=== PATIENT | female | born 1950 | race African-American/Black ===

== ENCOUNTER 2020-11-13 04:55 | Day surgery (SDC) | payer BC ==
[2020-11-11 11:51] LABS: BASOPHILS 0.7 % (0-2); EOSINOPHILS 2.5 % (0-7); HEMATOCRIT 43.5 % (36.0-48.0); HEMOGLOBIN 13.5 g/dL (12-16); MCH 24.3 pg (26.0-34.0); MCHC 31.1 g/dL (31.0-37.0); MCV 78.2 fL (80.0-100.0); MEAN PLATELET VOLUME 7.5 fL (7.4-10.4); MONOCYTES 7.6 % (2-11); NEUTROPHILS 62.2 % (40-80); PLATELET COUNT 275 10x3/uL (130-400); RBC 5.56 10x6/uL (4.00-5.40); RDW 14.4 % (11.5-14.5); WBC 7.5 10x3/uL (4.8-10.8)
[2020-11-11 12:04] LABS: ANION GAP 12.6 mmol/L (8-16); CALCIUM 9.9 mg/dL (8.5-10.1); CARBON DIOXIDE 27.1 mmol/L (21.0-32.0); CREATININE - SERUM 0.9 mg/dL (0.6-1.3); POTASSIUM - SERUM 3.7 mmol/L (3.5-5.1)
[~2020-11-13] VITALS: Ht 152.4 cm; Wt 62.6 kg
[~2020-11-13 04:55] MED LIST: ALTACE10 MG PO; ASPIRIN81 MG PO; COREG12.5 MG PO; GLUCOPHAGE1000 MG PO; HYDROCODON-ACE1 EAC7 PO; LEXAPRO10 MG PO; NORVASC10 MG PO; PROAIR HFA8.5 G1 INH; SINGULAIR10 MG PO; SYMBICORT 16010.2 GM INH; VICTOZA0.6 MG/0.1 SQ; ZOCOR40 MG PO
[2020-11-13 06:16] VITALS: BP 138/81; Ht 152.4 cm; Wt 62.6 kg
[2020-11-13] MEDS ORDERED: LEVEMIR FL100 UNIT/1 SC (06:22)
--- NOTE | 2020-11-13 08:15 | NUR ---
PADMA VILLAGRAN REVIEWED DISCHARGE INSTRUCTIONS WITH PT/SON. COPY OF DC INSTRUCTIONS PROVIDED ALONG WITH ORIGINAL RX FOR NORCO. BOTH VOICED UNDERSTANDING.
--- NOTE | 2020-11-13 08:22 | NUR ---
DISCHARGE INSTRUCTIONS GIVEN. PT VERBALIZED AN UNDERSTANDING. RX'D WITH NORCO FOR PAIN 12/22
--- NOTE | 2020-11-13 08:55 | NUR ---
DISCHARGED VIA W/C, ACCOMPANIED BY PADMA VILLAGRAN, TO WAITING AREA. SON ALSO WITH PT, AWAITING [facility].ALL BELONGINGS WITH PT/SON.
--- NOTE | 2020-11-13 14:17 | OP ---
PATIENT NAME: MARCEL BERRIOS MEDICAL RECORD: [id number] :50 LOCATION:[facility] ADMISSION DATE: SURGEON: HANS SNIDER DO DATE OF OPERATION: 11/13/2020 PROCEDURE: Left dorsal wrist ganglion excision. PREOPERATIVE DIAGNOSIS: Dorsal ganglion, left wrist. POSTOPERATIVE DIAGNOSIS: Dorsal ganglion, left wrist. INDICATIONS: The patient is a 70-year-old female who has had left wrist pain for quite some time. The ganglion has been going up and down and bothered her for quite some time and is inhibiting her activities of daily living and her function. She wanted something done surgically. She is aware of the risk of this including recurrence, commonly infection, bleeding, damage to nerves or vessels, need for further surgery, continued pain and blood clots and even and she signed consent. SURGEON: Hans Snider D.O. DESCRIPTION OF PROCEDURE: The patient was taken to the operative suite in supine position and given general anesthetic, LMA was placed. She was given a gram of Ancef preoperatively. Left upper extremity was then prepped and draped in sterile fashion. A timeout was performed. Everyone was in agreement with the correct side, site, patient, and procedure. We then began by exsanguinating the left upper extremity with an Esmarch, tourniquet was inflated to 250 mmHg, was up for 10 minutes. I then made an incision over the dorsal wrist. Careful dissection down to the ganglion cyst. It was just over the scapholunate and radiocarpal joint. I removed the cyst and traced it down to the joint and there was a rent in the joint capsule. Once I removed the cyst, I then took 3-0 Vicryl and put a lraclb-jq-odfag stitch in the joint capsule rent to close it hopefully preventing this from returning. I then let the tourniquet down and coagulated any bleeding with a bipolar. I then injected 0.25% Marcaine with epinephrine, approximately 10 mL of that site. I then closed it with 5-0 Monocryl in buried fashion. I placed on Steri-Strips, Adaptic, 4 x 4, cast padding, and a Coban lightly wrapped on her wrist. She was awakened and taken to recovery in stable condition. BLOOD LOSS: Minimal. COMPLICATIONS: None. TRANSINT:[id number] Voice Confirmation ID: [id number] DOCUMENT ID: [id number] HANS SNIDER DO at 1417 CC: [id number] DICTATION DATE: 11/13/20 1026 FINANCIAL ANALYSIS MANAGER: 11/13/20 1053 [facility] 11/13/20 [place] [id number] [place] [id number]
== END 2020-11-13 08:55 | disposition home or self-care (01) ==
LOC: D.OPS 04:55
PROVIDERS: Anesthesiology; ATTEND Orthopaedic Surgery
DX: M67.432 Ganglion, left wrist (principal); M25.532 Pain in left wrist